=== PATIENT | female | born 1995 | race Caucasian/White ===

== ENCOUNTER 2024-04-02 11:25 | Inpatient (IN) | payer OTHER ==
[~2024-04-02] VITALS: Ht 162.5 cm; Wt 83.7 kg
[2024-04-02 12:10] VITALS: BP 144/86
[2024-04-02] MEDS ORDERED: Thiamine 200 MG/2 ML VIAL IV ONE (12:25)
[2024-04-02] MEDS ORDERED: SODIUM CHLORIDE 0.9% 500 ML IV ONE ×2 (12:25)
[2024-04-02] MEDS ORDERED: DIAZEPAM 10 MG/2 ML SYR IV ONE ×2 (12:25→15:10)
[2024-04-02 12:52] LABS: HEMATOCRIT 44.2 % (37.0-47.0); MEAN CELL VOLUME 88.6 fl (81.0-99.0); MEAN CORPUSCULAR HGB 29.7 pg (27.0-31.0); MEAN CORPUSCULAR HGB CONC 33.5 g/dl (33.0-37.0); MEAN PLATELET VOLUME 11.4 fl (9.6-12.3); PLATELET COUNT AUTOMATED 267 10*3/uL (130-400); RED BLOOD COUNT 4.99 10*6/uL (4.10-5.10); RED CELL DISTRI WIDTH 12.7 % (0-14.5); WHITE BLOOD COUNT 16.4 10*3/uL (4.8-10.8)
[2024-04-02 12:59] LABS: MANUAL DIFF REFLEX YES
[2024-04-02 13:13] LABS: PLATELET SUFFICIENCY NORMAL (NORMAL); TOTAL CELLS COUNTED 100 #CELLS
[2024-04-02 13:14] LABS: ALKALINE PHOSPHATASE 75 U/L (46-116); BUN 9 mg/dl (9-23); CHLORIDE 102 mmol/L (98-107); POTASSIUM 3.5 mmol/L (3.4-5.1); SGPT/ALT 18 U/L (5-49); TOTAL PROTEIN 8.7 gm/dL (6.0-8.0)
[2024-04-02 13:27] LABS: ETHYL ALCOHOL < 3.0 mg/dl (<3)
[2024-04-02 13:46] VITALS: BP 139/96
[2024-04-02] MEDS ORDERED: BUPROPION HYDR100 M3 PO (13:50)
[2024-04-02] MEDS ORDERED: QUETIAPINE FUMA25 MG PO (13:50)
[2024-04-02] MEDS ORDERED: Promethazine Hydrochloride 25 MG/ML VIAL IM ONE (14:30)
[2024-04-02 14:54] LABS: BILIRUBIN Negative (Negative); BLOOD 1+ (Negative); CLARITY Cloudy (Clear); COLOR Yellow (Yellow); GLUCOSE Negative (Negative); KETONE 2+ (Negative); LEUKO ESTERASE Trace (Negative); NITRITE Negative (Negative); UROBILINOGEN 0.2 E.U./dl (0.0-1.0)
[2024-04-02 15:01] LABS: URINE AMPHETAMINES Negative (1000ng/ml); URINE BARBITURATES Negative (200ng/ml); URINE BENZODIAZEPINES Positive (200ng/ml); URINE CANNABINOIDS (THC) Positive (50ng/ml); URINE COCAINE Positive (300ng/ml); URINE METHADONE Negative (300ng/ml); URINE OPIATES Negative (300ng/ml); URINE PHENCYCLIDINE Positive (25ng/ml)
[2024-04-02 15:10] LABS: BACTERIA TRACE; MUCOUS 2+
[2024-04-02] MEDS ORDERED: Ondansetron Hydrochloride 4 MG/2 ML VIAL IV ONE (15:25)
[2024-04-02 15:33] VITALS: BP 126/74
[2024-04-02] MEDS ORDERED: Dicyclomine Hydrochloride 20 MG TAB PO PRN (16:40)
[2024-04-02] MEDS ORDERED: METHOCARBAMOL 750 MG TAB PO PRN (16:40)
[2024-04-02] MEDS ORDERED: hydrOXYzine 50 MG CAP PO PRN (16:40)
[2024-04-02] MEDS ORDERED: cloNIDine Hydrochloride 0.1 MG TAB PO PRN (16:40)
[2024-04-02] MEDS ORDERED: Ondansetron Hydrochloride 4 MG/2 ML VIAL IV PRN (16:45)
[2024-04-02] MEDS ORDERED: LORazepam 2 MG/ML VIAL IV PRN (16:55)
[2024-04-02] MEDS ORDERED: SODIUM CHLORIDE 0.9% 1,000 ML IV ONE (17:45)
[2024-04-02 18:49] VITALS: BP 147/94
[2024-04-02] MEDS ORDERED: LORazepam 1 MG TAB PO SCH (20:00)
[2024-04-02] MEDS ORDERED: Ropinirole Hydrochloride 0.5 MG TAB PO PRN (22:00)
[2024-04-02] MEDS ORDERED: Buprenorphine Hydrochloride 2 MG TAB SL SCH (22:00)
[2024-04-02 22:09] VITALS: BP 120/69
[2024-04-03 03:57] VITALS: BP 135/84
[2024-04-03] MEDS ORDERED: Pantoprazole Sodium 40 MG TAB PO SCH (06:00)
[2024-04-03 06:24] LABS: BASO % 0.2 % (0.0-1.0); EOS % 0.1 % (1.0-4.0); HEMATOCRIT 39.9 % (37.0-47.0); MEAN CELL VOLUME 88.3 fl (81.0-99.0); MEAN CORPUSCULAR HGB 29.4 pg (27.0-31.0); MEAN CORPUSCULAR HGB CONC 33.3 g/dl (33.0-37.0); MEAN PLATELET VOLUME 12.4 fl (9.6-12.3); MONO # 1.2 10*3/uL (0.1-1.0); MONO % 8.8 % (3.0-9.0); NEUT # 10.3 10*3/uL (2.3-7.9); NEUT % 75.5 % (47.0-73.0); PLATELET COUNT AUTOMATED 238 10*3/uL (130-400); RED BLOOD COUNT 4.52 10*6/uL (4.10-5.10); RED CELL DISTRI WIDTH 12.9 % (0-14.5); WHITE BLOOD COUNT 13.6 10*3/uL (4.8-10.8)
[2024-04-03 06:27] LABS: ALKALINE PHOSPHATASE 66 U/L (46-116); BUN 11 mg/dl (9-23); CHLORIDE 104 mmol/L (98-107); POTASSIUM 3.6 mmol/L (3.4-5.1); SGPT/ALT 14 U/L (5-49); TOTAL PROTEIN 7.8 gm/dL (6.0-8.0)
[2024-04-03 09:08] VITALS: BP 126/76
[2024-04-03] MEDS ORDERED: buPROPion SR 100 MG TAB PO SCH (10:00)
[2024-04-03] MEDS ORDERED: Enoxaparin Sodium 40 MG/0.4 ML SYR SC SCH (10:00)
[2024-04-03 20:01] VITALS: BP 128/68
[2024-04-03] MEDS ORDERED: LORazepam 1 MG TAB PO SCH (22:00)
[2024-04-03] MEDS ORDERED: QUETIAPINE FUMARATE 25 MG TAB PO SCH (22:00)
[2024-04-03] MEDS ORDERED: Buprenorphine Hydrochloride 2 MG TAB SL SCH (22:00)
[2024-04-04] MEDS ORDERED: LORazepam 1 MG TAB PO PRN
[2024-04-04 00:54] VITALS: BP 124/77
[2024-04-04 06:45] LABS: BASO # 0.1 10*3/uL (0.0-0.1); BASO % 0.8 % (0.0-1.0); EOS # 0.1 10*3/uL (0.0-0.4); EOS % 1.6 % (1.0-4.0); HEMATOCRIT 37.9 % (37.0-47.0); MEAN CELL VOLUME 89.8 fl (81.0-99.0); MEAN CORPUSCULAR HGB 30.6 pg (27.0-31.0); MEAN PLATELET VOLUME 12.4 fl (9.6-12.3); MONO # 0.7 10*3/uL (0.1-1.0); MONO % 9.8 % (3.0-9.0); NEUT # 4.3 10*3/uL (2.3-7.9); NEUT % 59.1 % (47.0-73.0); PLATELET COUNT AUTOMATED 206 10*3/uL (130-400); RED BLOOD COUNT 4.22 10*6/uL (4.10-5.10); RED CELL DISTRI WIDTH 12.9 % (0-14.5); WHITE BLOOD COUNT 7.3 10*3/uL (4.8-10.8)
[2024-04-04 06:52] LABS: BUN 9 mg/dl (9-23); CHLORIDE 106 mmol/L (98-107); POTASSIUM 4.1 mmol/L (3.4-5.1)
[2024-04-04 08:00] VITALS: BP 119/67
[2024-04-04 12:00] VITALS: BP 122/73
[2024-04-04] MEDS ORDERED: LORAZEPAM1 MG PO (12:24)
[2024-04-04] MEDS ORDERED: Ondansetron4 MG PO (12:24)
[2024-04-04] MEDS ORDERED: Buprenorphine Hydrochloride 2 MG TAB SL SCH (22:00)
== END 2024-04-04 15:45 | disposition home or self-care (01) | DRG 776 ==
LOC: ED 11:25 → EDHOLD 16:16 → 4E 04-03 23:43
PROVIDERS: Nurse Practitioner Family; Student in an Organized Health Care Education/Training Program; ADMIT Internal Medicine; ATTEND Internal Medicine
DX: F13.139 Sedative, hypnotic or anxiolytic abuse with withdrawal, unspecified (principal); E87.1 Hypo-osmolality and hyponatremia; F41.9 Anxiety disorder, unspecified; F32.A Depression, unspecified; F43.10 Post-traumatic stress disorder, unspecified; S46.811A Strain of other muscles, fascia and tendons at shoulder and upper arm level, right arm, initial encounter; D72.829 Elevated white blood cell count, unspecified; R73.9 Hyperglycemia, unspecified; R56.9 Unspecified convulsions; E83.52 Hypercalcemia; X58.XXXA Exposure to other specified factors, initial encounter; Z88.0 Allergy status to penicillin; Z88.8 Allergy status to other drugs, medicaments and biological substances; Y93.89 Activity, other specified; Y92.89 Other specified places as the place of occurrence of the external cause; Y99.8 Other external cause status